=== PATIENT | female | born 1985 | race Caucasian/White ===

== ENCOUNTER 2021-12-06 16:53 | Emergency (ER) | payer OTHER ==
[~2021-12-06 16:53] MED LIST: FLOMAX 0.4 MG0.4 MG PO; NORCO 5-325 TA1 EACH PO; ZOFRAN8 MG PO
[2021-12-06 17:48] LABS: BASOPHIL 1.8 % (0-2); EOSINOPHIL 4.9 % (0-5); HCT 39.4 % (37.0-47.0); HGB 12.9 g/dl (12.5-16.0); LYMPHOCYTE 15.5 % (15-48); MCH 30.6 pg (25.0-31.0); MCHC 32.7 g/dL (32.0-36.0); MCV 93.4 fL (78.0-100.0); MPV 9.6 fL (6.0-9.5); NEUTROPHIL 71.7 % (41-80); NRBC 0; PLT 243 K/uL (150-400); RBC 4.22 M/uL (4.20-5.40); RDW 12.6 % (11.5-14.0)
[2021-12-06 18:03] LABS: ALBUMIN 3.7 g/dL (3.4-5.0); BILIRUBIN - TOTAL 0.3 mg/dL (0.2-1.0); BUN/CREAT RATIO (CALC) 19.4 RATIO; CREATININE 0.67 mg/dL (0.51-0.95); GLOBULIN (CALCULATION) 3.2 g/dL; POTASSIUM 3.9 mmol/L (3.5-5.1); TOTAL PROTEIN 6.9 g/dL (6.4-8.2)
[2021-12-06 18:07] LABS: BILIRUBIN NEGATIVE (NEGATIVE); BLOOD NEGATIVE Ery/uL (NEGATIVE); CLARITY CLEAR (CLEAR); COLOR YELLOW (YELLOW); GLUCOSE (U) NORMAL (NORMAL); LEUKOCYTES NEGATIVE Leu/uL (NEGATIVE); NITRITE NEGATIVE (NEGATIVE); PROTEIN NEGATIVE (NEGATIVE); SPECIFIC GRAVITY >=1.030 (1.001-1.030); UROBILINOGEN 0.2 mg/dL (0.2-1.0)
[2021-12-06] MEDS ORDERED: PROTONIX40 MG PO ×2 (19:06→19:10)
== END 2021-12-06 20:30 | disposition home or self-care (01) ==
LOC: FER 16:53
PROVIDERS: Emergency Medicine
DX: K21.9 Gastro-esophageal reflux disease without esophagitis (principal); F17.200 Nicotine dependence, unspecified, uncomplicated
CPT/HCPCS: 36415; 80053; 81003; 83690; 84484; 85025; C9113